=== PATIENT | female | born 1955 | race Caucasian/White ===

== ENCOUNTER 2016-12-30 19:54 | Emergency (ER) | payer OTHER ==
[~2016-12-30] VITALS: Ht 149.9 cm; Wt 52.7 kg
[~2016-12-30 19:54] MED LIST: LOSA25TA21 PO; [UNRECOGNIZED DRUG - CODE] PO
[2016-12-30 20:07] VITALS: BP 137/78; PULSE 83; RESP 18; O2SAT 97
--- NOTE | 2016-12-30 21:03 | ED.REPORT ---
HPI-General Illness Date of Service Dec 30, 2016 ED Provider: Norman Truong MD Patient is a 61 year old female with a history of hypertension who presents to the ED with nausea, vomiting, and diarrhea that began last night. The patient states that she has been unable to keep down any food or drink, and that she is now dehydrated. The patient also has a headache and cannot keep down Ibuprofen to treat her pain. She also admits to sore throat, nasal congestion, and dizziness. Patient states that she painted a metallic wall yesterday is concerned that she "poisoned herself". She has previously had a cholecystectomy. The patient denies any recent sick contacts with similar symptoms. The patient denies a fever or cough. Nursing Notes Stated Complaint: POSSIBLE FLU Chief Complaint: FLU/Cold Symptoms Nursing Notes Reviewed: Yes Allergies: Coded Allergies: Soy (Verified Allergy, Unknown, 12/30/16) Sulfa (Sulfonamide Antibiotics) (Verified Allergy, Unknown, 12/30/16) acetaminophen (Verified Allergy, Unknown, 12/30/16) codeine (Verified Allergy, Unknown, 12/30/16) erythromycin base (Verified Allergy, Unknown, 12/30/16) protamine (Verified Allergy, Unknown, 12/30/16) Scheduled Diphenhydramine HCl ([facility] Allergy) 12.5 Mg/5 Ml Prfl.spoon 25 MG PO HS Losartan Potassium (Losartan Potassium) 25 Mg Tablet 25 MG PO DAILY Ondansetron ODT (Ondansetron ODT) 8 Mg Tab.rapdis 8 MG PO QID General Time Seen by MD: 21:03 Chief Complaint Diarrhea, Flu-like illness, Vomiting Hx Obtained From: Patient Arrived By: Walk-in Sudden in Onset?: No Onset Occurred: Just prior to arrival (evening) Symptom Duration: Waxes and wanes Location: : Head Quality: Painful Severity: Current: Moderate Severity: Maximum: Moderate Recent Healthcare: No recent doctor visit, No recent hospitalization Similar Sx Previous: No Past Medical History Past Medical History Frequent ear infections Ataxia Hep C s/p treatment Angiogram in 2003 (unknown location) reportedly shows "vasospastic angina" Low blood sugar Seasonal allergies Hypertension GERD Past Surgical History Colon polypectomy Reports: Cholecystectomy, Hysterectomy, Tonsillectomy Family History Aneurysm (father, sister) Smoking History Former Smoker Social History Recently moved into [facility] Alcohol Use: Denies alcohol use Drug Use: Denies drug use Other Social History: Good social support, Local resident Ambulatory Status Independent Review of Systems Full Review of Systems Constitutional: Denies: Fever Ears / Nose / Throat: Reports: Nose bleeding, Sore throat Respiratory: Denies: Non-productive cough GI: Reports: Diarrhea, Nausea, Vomiting Neurologic: Reports: Dizziness, Headache Complete sys rev & neg: except as marked. Physical Exam Vital Signs Vital Signs Date Time Temp Pulse Resp B/P Pulse Ox O2 Delivery O2 Flow Rate FiO2 12/30/16 23:27 37.0 83 18 128/64 98 Room Air 12/30/16 22:44 37.0 83 18 128/64 98 Room Air 12/30/16 20:07 36.6 83 18 137/78 97 Room Air Initial VS: Reviewed Extremities: Vascular intact, Neuro intact Skin: Warm, Dry, No cyanosis Neurologic: Alert, Oriented, Nonfocal Psychiatric: Mood/affect normal, Behavior normal, Normal thought content General/Constitutional: Awake, Alert, No acute distress Distress / Hydration: Positive: Dehydration moderate Head / Eyes: Normocephalic, PERRL, Conjunctiva NL ENT: Airway patent, Pharynx NL Mouth: Positive: Mucous membranes dry Neck: Supple, Full range of motion Respiratory / Chest: Breath sounds NL, Breath sounds = bilat, No respiratory distress, No rales, No rhonchi, No wheezing Cardiovascular: Heart rate NL, Regular rhythm, Heart sounds NL Abdomen: Soft Tenderness/Guarding/Rebound: Positive: Tender RUQ... (mild) Interpretation & Diagnostics Interpretation & Diagnostics: NEGATIVE FOR INFLUENZA TYPE A AND B Lab Results Interpretation Result Diagram: 12/30/16212512/30/162125 Test 12/30/16 21:26 12/30/16 22:26 White Blood Count 6.1th/mm3 (3.8-10.1) Red Blood Count 4.77mil/mm3 (3.90-5.20) Hemoglobin 14.5g/dL (12.0-15.6) Hematocrit 43.1% (35.0-46.0) Mean Corpuscular Volume 90.4fL (81-100) Mean Corpuscular Hemoglobin 30.4pg (27.0-35.0) Mean Corpuscular Hemoglobin Concent 33.6% (32.0-37.0) Red Cell Distribution Width 12.2% (12.3-15.4) Platelet Count 173bil/L (150-400) Neutrophils (%) (Auto) 83.5% (40-74) Lymphocytes (%) (Auto) 7.3% (14-46) Monocytes (%) (Auto) 8.7% (4-12) Eosinophils (%) (Auto) 0% (0-5) Basophils (%) (Auto) 0.3% (0-3) Sodium Level 138mEq/L (134-144) Potassium Level 4.0mEq/L (3.5-5.2) Chloride Level 97mEq/L (97-108) Carbon Dioxide Level 25mmol/L (18-29) Blood Urea Nitrogen 9mg/dL (8-27) Creatinine 0.60mg/dL (0.57-1.00) Estimat Glomerular Filtration Rate 145mL/min (>59) Glucose Level 112mg/dL (60-99) Calcium Level 9.6mg/dL (8.5-10.1) Magnesium Level 2.1mg/dL (1.6-2.6) Total Bilirubin 0.3mg/dL (0.0-1.2) Aspartate Amino Transf (AST/SGOT) 20U/L (0-50) Alanine Aminotransferase (ALT/SGPT) 18U/L (0-32) Alkaline Phosphatase 95U/L (25-165) Total Protein 7.5g/dL (6.4-8.4) Albumin 4.2g/dL (3.4-5.0) Lipase 23U/L (13-60) Hold Jaquez Top Tube Received (Received) Urine Color Straw (YELLOW) Urine Appearance Clear (CLEAR,HAZY) Urine pH 7.5 (5.0-8.0) Urine Specific [place] 1.010 (1.003-1.035) Urine Protein Negativemg/dL (NEG,TRACE) Urine Glucose (UA) Negativemg/dL (NEGATIVE) Urine Ketones 15mg/dL (NEGATIVE) Urine Occult Blood Negative (NEGATIVE) Urine Nitrite Negative (NEGATIVE) Urine Bilirubin Negative (NEGATIVE) Urine Urobilinogen Normalmg/dL (NORMAL) Urine Leukocyte Esterase Negative (NEGATIVE) Urine RBC 0-2/hpf (0-2) Urine WBC 0-5/hpf (0-5) Urine Epithelial Cells Occasional/hpf (NONE-MOD) Urine Crystals None seen (NONE SEEN) Urine Bacteria None/hpf (NONE-FEW) Urine Hyaline Casts None/lpf (NONE) Urine Granular Casts None seen (NONE SEEN) Urine Waxy Casts None seen (NONE SEEN) Urine Red Blood Cell Casts None seen (NONE SEEN) Urine White Blood Cell Casts None seen (NONE SEEN) Urine Mucus None seen (None Seen) Urine Trichomonas None seen (NONE SEEN) Urine Yeast None (NONE SEEN) Urine Culture Reflexed Not indicated Re-Eval/Medical Decision Med Decision/Clinical Course 61-year-old with acute nausea vomiting and diarrheal illness probably neurovirus given local prevalence. Improved here with IV fluids and Zofran. Home with Zofran and ongoing by mouth hydration with clear liquids and progressive diet as tolerated. Discharged in stable condition. Source of Hx: Old records Time of Eval: 23:16 Patient Status: Condition improved Re-Evaluation/Progress Note: Rechecked the patient, who feels improved enough to return home. Discussed lab results. Symptoms are consistent with Noro virus. Patient understands and agrees with the plan to be discharged home. Discharge instructions and follow-up discussed. All questions were addressed. Return to the ED warnings given. Counseled Regarding: Diagnosis, Lab results, Need for follow-up, When/why to return to ED Discharge & Departure Shift Change Sign-Out Response to Therapy: Improved Primary Impression: Gastroenteritis Disposition: Home Discharge Condition All VS Reviewed: Yes Condition: Stable Patient Instructions: Gastroenteritis (ED) Additional Instructions: Zofran as needed for nausea, to four times daily. Pepto-Bismol to maximum dose per labeled directions for diarrhea Drink plenty of clear fluids in frequent small amounts and stay hydrated Follow-up with your doctor in the office Return if any immediate issues. Referrals: [facility] Scribe Attestation Portions of this note were transcribed by Donna Robles. I, Dr. Truong personally performed the history, physical exam and medical decision-making; I reviewed and confirmed the accuracy of the information in the transcribed note. Signed by: Jose D Hartley, 12/30/2016 2317 Norman Truong MD Dec 30, 2016 21:03 Donna Robles Dec 30, 2016 21:11
[2016-12-30] MEDS ORDERED: 0.9% Sodium Chloride 1,000 ML IV ONE ×2 (21:08→21:10)
[2016-12-30] MEDS ORDERED: Pantoprazole 4 mg/mL 10 mL Inj IVPUSH ONE (21:10)
[2016-12-30] MEDS ORDERED: Ondansetron 2 mg/mL 2 mL Inj IVPUSH ONE (21:10)
[2016-12-30 21:48] LABS: BASOPHILS % (AUTO) 0.3 % (0-3); EOSINOPHILS % (AUTO) 0 % (0-5); MONOCYTES % (AUTO) 8.7 % (4-12); Mean Corpuscular Hemoglobin 30.4 pg (27.0-35.0); Mean Corpuscular Volume 90.4 fL (81-100); NEUTROPHILS % (AUTO) 83.5 % (40-74); Platelet Count 173 bil/L (150-400)
[2016-12-30 22:07] LABS: Magnesium 2.1 mg/dL (1.6-2.6)
[2016-12-30 22:43] LABS: APPEARANCE,URINE CLEAR (CLEAR,HAZY); COLOR,URINE STRAW (YELLOW); OCCULT BLOOD,URINE NEGATIVE (NEGATIVE); PH,URINE 7.5 (5.0-8.0); UROBILINOGEN,URINE NORMAL (NORMAL)
[2016-12-30 22:44] VITALS: BP 128/64; PULSE 83; RESP 18; O2SAT 98
[2016-12-30] MEDS ORDERED: ONDA8TAB10 PO (23:13)
[2016-12-30 23:27] VITALS: BP 128/64; PULSE 83; RESP 18; O2SAT 98
== END 2016-12-30 23:22 | disposition home or self-care (01) ==
LOC: SED 19:54
DX: K52.9 Noninfective gastroenteritis and colitis, unspecified (principal); J02.9 Acute pharyngitis, unspecified; R09.81 Nasal congestion; R42 Dizziness and giddiness; I10 Essential (primary) hypertension; K21.9 Gastro-esophageal reflux disease without esophagitis; Z87.891 Personal history of nicotine dependence; Z88.1 Allergy status to other antibiotic agents; Z88.2 Allergy status to sulfonamides; Z88.5 Allergy status to narcotic agent; Z88.8 Allergy status to other drugs, medicaments and biological substances; Z91.018 Allergy to other foods
CPT/HCPCS: 36415; 80053; 81000; 83690; 83735; 85025; 87804; 96361; 96374; 96375; 99285; J1200; J2405; J7030